=== PATIENT | female | born 1985 | race Caucasian/White ===

== ENCOUNTER 2024-04-16 10:30 | Outpatient (RCR) | payer OTHER, MEDICAID, SELFPAY | END 2024-04-16 19:00 | disposition home or self-care (01) | LOC: PT 10:30 | PROVIDERS: PCP Physician Assistant; Referring Provider Orthopaedic Surgery Sports Medicine; Visit Provider Orthopaedic Surgery Sports Medicine | DX: S93.402D Sprain of unspecified ligament of left ankle, subsequent encounter (principal) | CPT/HCPCS: 97110; 97162 ==

== ENCOUNTER → 2024-06-27 | Outpatient (CLI) | payer OTHER, MEDICAID, SELFPAY | END | disposition home or self-care (01) | LOC: PSN 08:48 | PROVIDERS: PCP Physician Assistant; Referring Provider Family Medicine; Visit Provider Family Medicine | DX: G62.9 Polyneuropathy, unspecified (principal) | CPT/HCPCS: 95886; 95912 ==

== ENCOUNTER → 2024-10-06 | Outpatient (CLI) | payer OTHER, MEDICAID, SELFPAY ==
--- NOTE | 2024-10-06 07:25 | MRI_ITS ---
PROCEDURE: Noncontrast MRI of the thoracic spine. REASON FOR EXAM: Polyneuropathy. Back pain. Numbness and tingling, leg pain. TECHNIQUE: Multiplanar, multisequence MRI images of the thoracic spine were obtained without IV contrast. COMPARISON: None. FINDINGS: The thoracic vertebral bodies are normal in height, alignment, and marrow signal. No acute fracture, focal subluxation, are abnormal marrow replacement process. The thoracic spinal cord is normal in signal and caliber. There is no focal disc herniation, significant central spinal canal, or neural foraminal narrowing. Included paraspinal soft tissues show no specific abnormality. MRI/Spine Thoracic (Routine) IMPRESSION: Unremarkable noncontrast MRI of the thoracic spine. No findings to explain the patient's symptoms. [facility]
--- NOTE | 2024-10-06 07:25 | MRI_ITS ---
PROCEDURE: MRI cervical spine without IV contrast REASON FOR EXAM: 10/06/2024 TECHNIQUE: Multisequence multiplanar MR images of the cervical spine were obtained without the administration of intravenous contrast. COMPARISON: None. FINDINGS: Vertebral body heights are maintained. Negative for fracture or marrow replacement. No focal bone marrow edema. Straightening of the normal lordosis. No significant scoliosis. Spinal cord is of normal caliber, contour and signal intensity. No paraspinal mass. C2-3: No focal disc abnormality, spinal stenosis or foraminal narrowing. C3-4: Tiny right central disc extrusion demonstrating mild bidirectional migration. Mild spinal stenosis. No significant foraminal narrowing. C4-5: Tiny central disc extrusion width 3 mm of cranial migration. Mild spinal stenosis. No significant foraminal narrowing. C5-6: Small posterior disc osteophyte complex. No significant spinal stenosis or foraminal narrowing. C6-7: No focal disc abnormality, spinal stenosis or foraminal narrowing. C7-T1: No focal disc abnormality, spinal stenosis or foraminal narrowing. MRI/Spine Cervical (Routine) IMPRESSION: 1. Acquired mild spinal stenosis at C3-4 and C4-5 as above. 2. No significant foraminal narrowing. Reading Location: [facility]
== END | disposition home or self-care (01) ==
PROVIDERS: PCP Physician Assistant
DX: G54.9 Nerve root and plexus disorder, unspecified (principal); G62.9 Polyneuropathy, unspecified
CPT/HCPCS: 72141; 72146

== ENCOUNTER → 2024-11-13 | Outpatient (CLI) | payer OTHER, SELFPAY ==
[2024-11-13 16:45] LABS: Erythrocyte Sedimentation Rate 11 mm/hr (0-30)
[2024-11-13 22:21] LABS: CRP 5.94 mg/L (0.0-3.0); Iron 80 ug/dL (50-170); Magnesium 2.2 mg/dL (1.5-2.2)
[2024-11-19 08:07] LABS: ANTINUCLEAR ANTIBODIES DIRECT Negative (Negative); HOMOCYSTEINE 7.1 umol/L (0.0-14.5); Methylmalonic Acid Bld 140 nmol/L (0-378)
== END | disposition home or self-care (01) ==
LOC: MTLAB 10:09
PROVIDERS: PCP Physician Assistant
DX: G54.9 Nerve root and plexus disorder, unspecified (principal); G62.9 Polyneuropathy, unspecified; R53.83 Other fatigue; E53.8 Deficiency of other specified B group vitamins
CPT/HCPCS: 36415; 82175; 82747; 82784; 83090; 83540; 83655; 83735; 83825; 83883; 83921; 84165; 85014; 85652; 86038; 86140; 86225; 86235; 86334; 86340

== ENCOUNTER → 2024-12-05 | Outpatient (CLI) | payer OTHER, SELFPAY ==
--- NOTE | 2024-12-05 14:13 | MRI_ITS ---
PROCEDURE: SPINE LUMBAR (ROUTINE) 12/05/2024 REASON FOR EXAM: NEUROPATHY WITH POSSIBLE SPINAL CORD INVOLVEMENT Lower back pain, paresthesias TECHNIQUE: Multiplanar and multisequence images were obtained without IV contrast administration. COMPARISON: None FINDINGS: Vertebrae: Vertebral body heights are maintained. Normal marrow signal. Alignment: Maintained typical lordosis without spondylolisthesis. Conus Medullaris: Terminates at L1. L1-2: Unremarkable L2-3: Unremarkable L3-4: Unremarkable L4-5: Unremarkable L5-S1: Unremarkable Sacrum: Partially visualized sacroiliac joints appear within normal limits. Mild paraspinous muscle fatty atrophy. MRI/Spine Lumbar (Routine) IMPRESSION: NEGATIVE LUMBAR SPINE MRI. Reading [facility]
== END | disposition home or self-care (01) ==
LOC: MRI 14:10
PROVIDERS: PCP Physician Assistant
DX: M54.50 Low back pain, unspecified (principal); R53.83 Other fatigue; E53.8 Deficiency of other specified B group vitamins; G54.9 Nerve root and plexus disorder, unspecified; G62.9 Polyneuropathy, unspecified
CPT/HCPCS: 72148

== ENCOUNTER 2025-05-02 13:30 | Outpatient (RCR) | payer OTHER, SELFPAY ==
--- NOTE | 2025-02-12 09:28 | HP.PTEVAL ---
Patient's Visit Information Visit Information Visit Information: EDUARDO ALICEA is a 39 year old F referred to Physical Therapy by REYNA Nation with a diagnosis of LUMBAR PAIN. Date of Evaluation: 02/12/25 Physical Therapist: Richard Louie, PT, Cert MDT, OCS Visit Plan Frequency: 2x /Week Duration: 4 Weeks Plan: PT INTERVENTIONS AQUATIC THERAPY BLE STRENGTHENING ,DLS ,POSTURAL EX'S ,LE FLEXABILITY ,BALANCE TRAINING AND GENERAL CONDITIONING Subjective Subjective: This 39 y/o female presents to physical therapy with lumbar pain. Patient has lumbar pain and neuropathy for ~ 2 years and progressively worse past 6 months. Seen Neurologist had blood work and MRI neck C4-5: Tiny central disc extrusion width 3 mm of cranial migration , back WFL . Overall - except B12 injection. No falls. No pain management . Voltarion .Stopped meloxicam. Patient has been using cane for gait. Pain located symmetrical LS /SI . Aggravating standing 5 mis ,walking 2 mins, uses scooter if shopping ,bending sitting. Alleviating rest. C/O paresthesia /tingling legs and sharp pain. Coughing/sneezing-,Bowel/bladder-. Neuropathy ache at night when sleeping thus affects sleeping. No treatment. Patient pain affects QOL/housework and unable to work thus had to stop. Patient goals to decrease pain.Patient has TENS unit and foot massage ,VASO ,redlight therapy. SOCIAL: VOCATION: unemployed Pain Bilateral Back: Pain Intensity (Out of 10): 7 Pain Intensity Range: 10 Bilateral Lower Extremity: Pain Intensity (Out of 10): 8 Pain Intensity Range: 10 Objective Objective: POSTURE: mild forward posture ,bilateral knee valgus ,genu recurvatum GAIT: reciprocal pattern slow lyudmila with 2 point gait PALAPTION: SI /LS SYMMETRIES: align NEURO: c/o paresthesia/tingling ,reflexes L3-4,L4-5.L5-S 1 2/3 LUMBAR ROM: flexion mod loss ,extension min loss ,side glides min loss FLEXABILITY: hamstrings mod tight MMT: ( peak force) quads right 20.8 ,left 19.2 ,hamstrings 11.1 rightv ,left 14.2 ,ankle 4/5 Special Tests L/S Slump test left side: Negative L/S Slump test right side: Negative L/S Left Straight Leg Raise: Negative L/S Right Straight Leg Raise: Negative Balance/Special Test Scores Oswestry Low Back Score: 32 Goals Goal 1:: Patient to be I with Aquatic therapy Goal Time Frame: 4-6 Weeks Goal 2:: Patient to improve lumbar ROM for function of recovery function to put on shoes Goal Time Frame: 4-6 Weeks Goal 3:: Patient to improve peak force quads/hams/hip by 5-10# to improve gait Goal Time Frame: 4-6 Weeks Goal 4:: Patient to be able to stand walk > 10 mins to improve gait. Goal Time Frame: 4-6 Weeks Goal 5:: Patient demonstrate 40% improvement with less pain and improved function Goal Time Frame: 4-6 Weeks Rehabilitation Potential Physical Therapy Diagnosis: This patient has lumbar pain with decrease balance due to neuropathy with pain with positioning walking/standing uses cane motion testing along with weakness in legs thus benefit from skilled PT Rehabilitation Potential: Fair Anticipated Interventions Patient/Client Instruction: Educate patient on: Condition and Plan of Care For the Purpose of:: To decrease pain, To increase ROM, To improve muscle performance and motor function, To improve ability to perform ADL's, To increase tolerance to activity/condition/position, To improve ability of physical actions for home/community/work/leisure, To improve health of tissue, To decrease soft tissue restriction, To increase flexibility/ROM, To improve balance and To improve tolerance to ADL's Therapeutic Exercise to Include: Strength training, Balance training, Postural training, Flexibilty training, In an aquatic setting, Active ROM and Dynamic Lumbar Stabilization For the Purpose of:: To decrease pain, To increase ROM, To improve muscle performance and motor function, To improve ability to perform ADL's, To increase tolerance to activity/condition/position, To improve ability of physical actions for home/community/work/leisure, To improve gait and locomotor functions, To improve health of tissue, To decrease soft tissue restriction, To increase flexibility/ROM, To improve endurance, To improve balance, To improve health and function and To improve tolerance to ADL's Text: Thank you for the opportunity to evaluate your patient. For Medicare and Medicare HMO plans, please review the plan of care and approve it. It will need to be FAXED BACK to us at [phone] for Medicare purposes. For Medicare only, by signing this I certify the plan of care. Please let me know if there are questions or concerns regarding this plan of care. Physician Signature: Date:
== END 2025-05-02 19:00 | disposition home or self-care (01) ==
LOC: PT 13:30
PROVIDERS: PCP Physician Assistant; Referring Provider Physician Assistant; Visit Provider Physician Assistant
DX: M54.50 Low back pain, unspecified (principal)
CPT/HCPCS: 97110; 97113; 97162; 97530